=== PATIENT | female | born 1950 | race African-American/Black ===

== ENCOUNTER 2023-01-28 11:07 | Outpatient (CLI) | payer MEDICARE | END 2023-01-28 11:08 | disposition home or self-care (01) | LOC: CSHRAD 11:07 | PROVIDERS: ATTEND Physician Assistant Surgical | DX: M47.26 Other spondylosis with radiculopathy, lumbar region (principal); M54.2 Cervicalgia; M89.9 Disorder of bone, unspecified; Z98.890 Other specified postprocedural states; M47.812 Spondylosis without myelopathy or radiculopathy, cervical region | CPT/HCPCS: 72050; 72120 ==